=== PATIENT | female | born 1940 | race Caucasian/White ===

== ENCOUNTER 2019-02-19 11:26 | Inpatient (IN) | payer MEDICARE, OTHER ==
[2019-02-19] VITALS (37 sets, daily range): BP systolic 121–155; BP diastolic 51–97
[~2019-02-19] VITALS: Ht 154.9 cm; Wt 54.1 kg
[2019-02-19 11:53] LABS: BASOPHILS % 0.7 % (0.0-2.0); EOSINOPHILS % 1.2 % (0.0-5.0); HEMATOCRIT. 46.1 % (36.0-48.0); HEMOGLOBIN. 15.4 g/dL (12.0-16.0); LYMPHOCYTES % 9.9 % (20.0-50.0); MEAN CORPUSCULAR HEMOGLOBIN 31.8 pg (28.0-32.0); MEAN CORPUSCULAR VOLUME 95.1 fL (81.0-99.0); MEAN PLATELET VOLUME 8.9 fl (7.4-10.4); MONOCYTES % 4.3 % (2.0-8.0); NEUTROPHILS % 83.9 % (40.0-76.0); PLATELET 398 x1000/uL (130-400); RED BLOOD CELL COUNT 4.85 mill/uL (4.2-5.4); RED CELL DISTRIBUTION WIDTH 13.8 % (11.6-14.6)
[2019-02-19 11:55] LABS: CHLORIDE 101 mEq/L (98-107)
[2019-02-19 11:59] LABS: ETHANOL BLOOD < 10 mg/dL
[2019-02-19 12:02] LABS: LDL CHOLESTEROL 109 mg/dL (5-100)
[2019-02-19 12:06] LABS: PROTHROMBIN TIME 9.9 sec (9.6-11.0)
[2019-02-19] MEDS ORDERED: ASPIRIN 325MG EC TABLET PO ONE (12:30)
[2019-02-19] MEDS ORDERED: ALTEPLASE IV STA (13:07)
[2019-02-19] MEDS ORDERED: ALTEPLASE 100MG/VIAL IV STA (13:07)
[2019-02-19] MEDS ORDERED: *NO ASPIRIN X 24 HOURS XX SCH (13:14)
[2019-02-19] MEDS ORDERED: MAGNESIUM/ALUMINUM HYDROXIDE/SIMETHICONE 30ML UDC PO PRN (16:15)
[2019-02-19] MEDS ORDERED: ACETAMINOPHEN 325MG TABLET PO PRN (16:15)
[2019-02-19] MEDS ORDERED: DOCUSATE SODIUM 100MG CAPSULE PO PRN (16:15)
[2019-02-19] MEDS ORDERED: HYDROCODONE/ACETAMINOPHEN 5/325MG TABLET PO PRN (16:15)
[2019-02-19] MEDS ORDERED: DIPHENHYDRAMINE 50MG/ML VIAL IV PRN (16:15)
[2019-02-19] MEDS ORDERED: ONDANSETRON HCL 4MG/2ML INJ IV PRN (16:15)
[2019-02-19] MEDS ORDERED: CYAN100096 PO (16:22)
[2019-02-19] MEDS ORDERED: DENO60DI SQ (16:22)
[2019-02-19] MEDS ORDERED: GABA-531 MT (17:14)
[2019-02-19] MEDS ORDERED: MELO-104 PO (17:14)
[2019-02-19] MEDS ORDERED: BIMA2.5D4 EACHEYE (17:14)
[2019-02-19] MEDS ORDERED: MEMA10TA19 MT (17:14)
[2019-02-19] MEDS ORDERED: METO25TA6 PO (17:14)
[2019-02-19] MEDS ORDERED: LUTE1CAP5 MT (17:14)
[2019-02-19] MEDS ORDERED: CHOL200010 PO (17:14)
[2019-02-19] MEDS ORDERED: OMEP20CA5 PO (17:14)
[2019-02-19] MEDS ORDERED: SACC250C9 PO (17:14)
[2019-02-19] MEDS ORDERED: TRAM50TA3 PO (17:14)
[2019-02-19] MEDS ORDERED: DONE10TA43 MT (17:14)
[2019-02-19] MEDS ORDERED: SIMV40TA5 PO (17:14)
[2019-02-19] MEDS ORDERED: UBID100C12 PO (17:14)
[2019-02-19] MEDS ORDERED: LEVO75TA7 PO (17:14)
[2019-02-19] MEDS ORDERED: MAGN500C4 PO (17:14)
[2019-02-19] MEDS ORDERED: MELA10CA PO (17:14)
[2019-02-19] MEDS ORDERED: CALC-900 PO (17:14)
[2019-02-19] MEDS ORDERED: GLUC-113 MT (17:14)
[2019-02-19] MEDS ORDERED: IOHEXOL-350 100 ML BOTTLE ONE (17:18)
[2019-02-19 17:47] LABS: T4 FREE 1.6 ng/dL (0.76-1.46)
[2019-02-19 18:14] LABS: VITAMIN B12 SERUM > 2000.0 pg/mL (211-911)
[2019-02-19 18:31] LABS: CLARITY URINE CLOUDY (CLEAR); COLOR URINE YELLOW (YELLOW); KETONES URINE NEGATIVE (NEGATIVE); LEUKOCYTE ESTERASE URINE 2+ (NEGATIVE); NITRITE URINE POSITIVE (NEGATIVE); OCCULT BLOOD URINE TRACE (NEGATIVE); PROTEIN URINE 1+ (NEGATIVE); SPECIFIC GRAVITY URINE 1.031 (1.005-1.030); UROBILINOGEN URINE 0.2 E.U./dL (0.2-1.0)
[2019-02-19] MEDS ORDERED: TRAMADOL 50MG TABLET PO PRN (18:45)
[2019-02-19 18:52] LABS: *AMPHETAMINES SCREEN URINE NEGATIVE (NEGATIVE); *BARBITURATES SCREEN URINE NEGATIVE (NEGATIVE); *BENZODIAZEPINES SCREEN URINE NEGATIVE (NEGATIVE)
[2019-02-19 18:53] LABS: *COCAINE SCREEN URINE NEGATIVE (NEGATIVE); CANNABINOID URINE SCREEN PRESUMTIVE POSITIVE (NEGATIVE); METHADONE URINE SCREEN NEGATIVE (NEGATIVE); OPIATES URINE SCREEN NEGATIVE (NEGATIVE); PHENCYCLIDINE URINE SCREEN NEGATIVE (NEGATIVE)
[2019-02-19] MEDS: GABAPENTIN 300MG CAPSULE PO SCH (19:08)
[2019-02-19] MEDS: SODIUM CHLORIDE 0.9% 1,000 ML IV SCH (19:37)
[2019-02-19] MEDS: MEMANTINE HCL 10MG TABLET PO SCH (21:10)
[2019-02-20] VITALS (86 sets, daily range): BP systolic 94–190; BP diastolic 34–132
[2019-02-20] MEDS: CLONIDINE 0.1MG TABLET PO PRN (02:02)
[2019-02-20 05:18] LABS: BASOPHILS % 0.6 % (0.0-2.0); EOSINOPHILS % 3.3 % (0.0-5.0); HEMATOCRIT. 38.6 % (36.0-48.0); HEMOGLOBIN. 12.9 g/dL (12.0-16.0); MEAN CORPUSCULAR HEMOGLOBIN 31.8 pg (28.0-32.0); MEAN CORPUSCULAR VOLUME 95.3 fL (81.0-99.0); MONOCYTES % 8.7 % (2.0-8.0); NEUTROPHILS % 58.4 % (40.0-76.0); PLATELET 306 x1000/uL (130-400); RED BLOOD CELL COUNT 4.05 mill/uL (4.2-5.4); RED CELL DISTRIBUTION WIDTH 13.5 % (11.6-14.6)
[2019-02-20 05:35] LABS: PHOSPHORUS 3.6 mg/dL (2.5-4.9)
[2019-02-20] MEDS: PANTOPRAZOLE SODIUM 40 MG/VIAL IV SCH (08:21)
[2019-02-20] MEDS: OMEPRAZOLE 20MG CAPSULE EXTENDED RELEASE PO SCH (08:22)
[2019-02-20] MEDS: DONEPEZIL HCL 10MG TABLET PO SCH (08:22)
[2019-02-20] MEDS: GABAPENTIN 300MG CAPSULE PO SCH ×3 (08:22→19:04)
[2019-02-20] MEDS: MEMANTINE HCL 10MG TABLET PO SCH ×2 (08:22→19:05)
[2019-02-20] MEDS: LEVOTHYROXINE SODIUM 75MCG TABLET PO SCH (08:23)
[2019-02-20] MEDS ORDERED: POTASSIUM CHLORIDE 20MEQ TABLET SR PO NR (08:30)
[2019-02-20 09:30] LABS: CREATINE KINASE 72 IU/L (26-192)
[2019-02-20] MEDS: CYANOCOBALAMIN 1000MCG TABLET PO SCH (12:18)
[2019-02-20] MEDS ORDERED: METOPROLOL TARTRATE 25MG TABLET PO SCH (17:00)
[2019-02-20] MEDS: MELOXICAM 7.5MG TABLET PO SCH (19:04)
[2019-02-20] MEDS: SODIUM CHLORIDE 0.9% 1,000 ML IV SCH (20:16)
[2019-02-20] MEDS ORDERED: ATORVASTATIN CALCIUM 10MG TABLET PO SCH (21:00)
[2019-02-21] VITALS (17 sets, daily range): BP systolic 88–175; BP diastolic 57–114
[2019-02-21] MEDS: CLONIDINE 0.1MG TABLET PO PRN (00:08)
[2019-02-21 05:26] LABS: BASOPHILS % 0.7 % (0.0-2.0); EOSINOPHILS % 4.2 % (0.0-5.0); HEMOGLOBIN. 12.9 g/dL (12.0-16.0); LYMPHOCYTES % 22.4 % (20.0-50.0); MEAN CORPUSCULAR HEMOGLOBIN 31.8 pg (28.0-32.0); MEAN CORPUSCULAR VOLUME 95.8 fL (81.0-99.0); MEAN PLATELET VOLUME 9.5 fl (7.4-10.4); NEUTROPHILS % 64.7 % (40.0-76.0); PLATELET 330 x1000/uL (130-400); RED BLOOD CELL COUNT 4.07 mill/uL (4.2-5.4); RED CELL DISTRIBUTION WIDTH 13.9 % (11.6-14.6)
[2019-02-21] MEDS: MEMANTINE HCL 10MG TABLET PO SCH (08:43)
[2019-02-21] MEDS: GABAPENTIN 300MG CAPSULE PO SCH ×2 (08:43→12:53)
[2019-02-21] MEDS: OMEPRAZOLE 20MG CAPSULE EXTENDED RELEASE PO SCH (08:43)
[2019-02-21] MEDS: CYANOCOBALAMIN 1000MCG TABLET PO SCH (08:43)
[2019-02-21] MEDS: LEVOTHYROXINE SODIUM 75MCG TABLET PO SCH (08:43)
[2019-02-21] MEDS: MELOXICAM 7.5MG TABLET PO SCH (08:44)
[2019-02-21] MEDS: PANTOPRAZOLE SODIUM 40 MG/VIAL IV SCH (08:44)
[2019-02-21] MEDS: DONEPEZIL HCL 10MG TABLET PO SCH (08:44)
[2019-02-21] MEDS ORDERED: METOPROLOL TARTRATE 50MG TABLET PO SCH (12:00)
[2019-02-21] MEDS ORDERED: CEPHALEXIN 250MG CAPSULE PO SCH (14:30)
[2019-02-21] MEDS ORDERED: CLOPIDOGREL 75MG TABLET PO SCH (15:45)
[2019-02-22] MEDS ORDERED: LEVOTHYROXINE SODIUM 75MCG TABLET PO SCH (06:30)
[2019-02-22] MEDS ORDERED: METOPROLOL TARTRATE 25MG TABLET PO SCH (09:00)
== END 2019-02-21 16:20 | DRG 61 ==
LOC: ER 11:26 → MICUNO 13:26 → EDBEDREQ 13:33 → EDBEDREQSVC 13:33 → ENRESERV 13:53
PROVIDERS: ADMIT Family Medicine Adult Medicine; ATTEND Family Medicine Adult Medicine
DX: I63.9 Cerebral infarction, unspecified (principal); N17.0 Acute kidney failure with tubular necrosis; N39.0 Urinary tract infection, site not specified; G81.94 Hemiplegia, unspecified affecting left nondominant side; R47.01 Aphasia; D64.9 Anemia, unspecified; E87.6 Hypokalemia; E78.5 Hyperlipidemia, unspecified; R13.10 Dysphagia, unspecified; M48.061 Spinal stenosis, lumbar region without neurogenic claudication; B96.20 Unspecified Escherichia coli [E. coli] as the cause of diseases classified elsewhere; E03.9 Hypothyroidism, unspecified; E78.00 Pure hypercholesterolemia, unspecified; F02.80 Dementia in other diseases classified elsewhere, unspecified severity, without behavioral disturbance, psychotic disturbance, mood disturbance, and anxiety; G30.9 Alzheimer's disease, unspecified; G89.4 Chronic pain syndrome; Z66 Do not resuscitate; M19.90 Unspecified osteoarthritis, unspecified site; R47.1 Dysarthria and anarthria; I12.9 Hypertensive chronic kidney disease with stage 1 through stage 4 chronic kidney disease, or unspecified chronic kidney disease; N18.9 Chronic kidney disease, unspecified; Z82.49 Family history of ischemic heart disease and other diseases of the circulatory system; Z88.2 Allergy status to sulfonamides; Z90.710 Acquired absence of both cervix and uterus; Z79.899 Other long term (current) drug therapy
CPT/HCPCS: 36415; 70496; 70498; 70551; 71045; 76770; 80048; 80061; 80305; 80320; 81003; 82550; 82607; 82746; 82962; 83036; 83721; 83735; 84100; 84439; 84443; 84481; 84484; 87077; 87186; 93005; 93306; 93970; 97110; 97116; 97162; 97166; 99291; C9113; J2997; J7030; Q9967; G0480

== ENCOUNTER 2019-02-21 16:35 | Inpatient (IN) | payer MEDICARE, OTHER ==
[~2019-02-21] VITALS: Ht 154.9 cm; Wt 52.6 kg
[2019-02-21 16:35] VITALS: BP 158/82
[~2019-02-21 16:35] MED LIST: BIMA2.5D4 EACHEYE; CALC-900 PO; CHOL200010 PO; CYAN100096 PO; DENO60DI SQ; DONE10TA43 MT; GABA-531 MT; GLUC-113 MT; LEVO75TA7 PO; LUTE1CAP5 MT; MAGN500C4 PO; MELA10CA PO; MELO-104 PO; MEMA10TA19 MT; METO25TA6 PO; OMEP20CA5 PO; SACC250C9 PO; SIMV40TA5 PO; TRAM50TA3 PO; UBID100C12 PO
[2019-02-21] MEDS ORDERED: HYDROCODONE/ACETAMINOPHEN 5/325MG TABLET PO PRN (17:45)
[2019-02-21] MEDS ORDERED: TRAMADOL 50MG TABLET PO PRN (17:45)
[2019-02-21] MEDS ORDERED: CEPHALEXIN 250MG CAPSULE PO ONE (17:45)
[2019-02-21] MEDS ORDERED: ACETAMINOPHEN 325MG TABLET PO PRN (17:45)
[2019-02-21] MEDS ORDERED: ONDANSETRON 4MG ODT PO PRN (17:45)
[2019-02-21] MEDS ORDERED: DIPHENHYDRAMINE 25MG CAPSULE PO PRN (17:45)
[2019-02-21] MEDS: CLONIDINE 0.1MG TABLET PO PRN (19:56)
[2019-02-21 20:00] VITALS: BP 163/81
[2019-02-21 21:00] VITALS: BP 154/91
[2019-02-21] MEDS: GABAPENTIN 300MG CAPSULE PO SCH (21:00)
[2019-02-21] MEDS: ATORVASTATIN CALCIUM 10MG TABLET PO SCH (21:02)
[2019-02-21] MEDS: MEMANTINE HCL 10MG TABLET PO SCH (21:02)
[2019-02-22] MEDS: GABAPENTIN 300MG CAPSULE PO SCH ×3 (06:12→21:30)
[2019-02-22] MEDS: LEVOTHYROXINE SODIUM 75MCG TABLET PO SCH (06:13)
[2019-02-22 07:11] LABS: BASOPHILS % 0.9 % (0.0-2.0); EOSINOPHILS % 3.6 % (0.0-5.0); HEMATOCRIT. 42.6 % (36.0-48.0); HEMOGLOBIN. 14.2 g/dL (12.0-16.0); MEAN CORPUSCULAR HEMOGLOBIN 31.8 pg (28.0-32.0); MEAN CORPUSCULAR VOLUME 95.9 fL (81.0-99.0); MEAN PLATELET VOLUME 9.1 fl (7.4-10.4); MONOCYTES % 7.5 % (2.0-8.0); PLATELET 366 x1000/uL (130-400); RED BLOOD CELL COUNT 4.45 mill/uL (4.2-5.4); RED CELL DISTRIBUTION WIDTH 13.6 % (11.6-14.6)
[2019-02-22 07:19] LABS: CHLORIDE 111 mEq/L (98-107)
[2019-02-22 08:00] VITALS: BP 107/55
[2019-02-22] MEDS: METOPROLOL TARTRATE 50MG TABLET PO SCH (09:00)
[2019-02-22] MEDS ORDERED: MAGNESIUM/ALUMINUM HYDROXIDE/SIMETHICONE 30ML UDC PO SCH (09:00)
[2019-02-22] MEDS: MEMANTINE HCL 10MG TABLET PO SCH ×2 (09:50→21:30)
[2019-02-22] MEDS: OMEPRAZOLE 20MG CAPSULE EXTENDED RELEASE PO SCH (09:50)
[2019-02-22] MEDS: DONEPEZIL HCL 10MG TABLET PO SCH (09:51)
[2019-02-22] MEDS: MELOXICAM 7.5MG TABLET PO SCH (09:51)
[2019-02-22] MEDS: DOCUSATE SODIUM 100MG CAPSULE PO SCH ×2 (09:51→17:09)
[2019-02-22] MEDS: CYANOCOBALAMIN 1000MCG TABLET PO SCH (10:56)
[2019-02-22] MEDS: CEPHALEXIN 250MG CAPSULE PO SCH (17:10)
[2019-02-22 20:00] VITALS: BP 148/86
[2019-02-22] MEDS: ATORVASTATIN CALCIUM 10MG TABLET PO SCH (21:30)
[2019-02-23 05:39] LABS: BASOPHILS % 0.6 % (0.0-2.0); CHLORIDE 107 mEq/L (98-107); HEMATOCRIT. 40.7 % (36.0-48.0); HEMOGLOBIN. 13.6 g/dL (12.0-16.0); LYMPHOCYTES % 23.3 % (20.0-50.0); MEAN CORPUSCULAR HEMOGLOBIN 31.8 pg (28.0-32.0); MONOCYTES % 8.8 % (2.0-8.0); NEUTROPHILS % 63.3 % (40.0-76.0); PLATELET 340 x1000/uL (130-400); RED BLOOD CELL COUNT 4.28 mill/uL (4.2-5.4); RED CELL DISTRIBUTION WIDTH 13.6 % (11.6-14.6)
[2019-02-23 05:46] LABS: PHOSPHORUS 2.7 mg/dL (2.5-4.9)
[2019-02-23] MEDS: GABAPENTIN 300MG CAPSULE PO SCH ×3 (06:22→21:19)
[2019-02-23] MEDS: LEVOTHYROXINE SODIUM 75MCG TABLET PO SCH (06:22)
[2019-02-23 08:21] VITALS: BP 134/87
[2019-02-23] MEDS: DOCUSATE SODIUM 100MG CAPSULE PO SCH ×2 (10:07→17:03)
[2019-02-23] MEDS: MEMANTINE HCL 10MG TABLET PO SCH ×2 (10:08→20:09)
[2019-02-23] MEDS: CEPHALEXIN 250MG CAPSULE PO SCH ×2 (10:08→17:03)
[2019-02-23] MEDS: METOPROLOL TARTRATE 50MG TABLET PO SCH (10:08)
[2019-02-23] MEDS: DONEPEZIL HCL 10MG TABLET PO SCH (10:08)
[2019-02-23] MEDS: MELOXICAM 7.5MG TABLET PO SCH (10:09)
[2019-02-23] MEDS: CLOPIDOGREL 75MG TABLET PO SCH (10:09)
[2019-02-23] MEDS: CYANOCOBALAMIN 1000MCG TABLET PO SCH (10:09)
[2019-02-23] MEDS: OMEPRAZOLE 20MG CAPSULE EXTENDED RELEASE PO SCH (10:09)
[2019-02-23 20:00] VITALS: BP 114/69
[2019-02-23] MEDS: ATORVASTATIN CALCIUM 10MG TABLET PO SCH (20:09)
[2019-02-23] MEDS: LATANOPROST 0.005% OPHTH DROPS 2.5ML BOTHEYE SCH (20:09)
[2019-02-23] MEDS ORDERED: NON FORMULARY PATIENT HOME MED OP SCH (21:00)
[2019-02-24] MEDS: GABAPENTIN 300MG CAPSULE PO SCH ×3 (06:08→21:33)
[2019-02-24] MEDS: LEVOTHYROXINE SODIUM 75MCG TABLET PO SCH (06:08)
[2019-02-24 08:11] VITALS: BP 113/75
[2019-02-24] MEDS: OMEPRAZOLE 20MG CAPSULE EXTENDED RELEASE PO SCH (08:54)
[2019-02-24] MEDS: CEPHALEXIN 250MG CAPSULE PO SCH ×2 (08:55→16:11)
[2019-02-24] MEDS: MEMANTINE HCL 10MG TABLET PO SCH ×2 (08:56→21:33)
[2019-02-24] MEDS: CLOPIDOGREL 75MG TABLET PO SCH (08:56)
[2019-02-24] MEDS: CYANOCOBALAMIN 1000MCG TABLET PO SCH (08:56)
[2019-02-24] MEDS: DOCUSATE SODIUM 100MG CAPSULE PO SCH ×2 (08:57→16:11)
[2019-02-24] MEDS: DONEPEZIL HCL 10MG TABLET PO SCH (08:57)
[2019-02-24] MEDS: MELOXICAM 7.5MG TABLET PO SCH (08:57)
[2019-02-24] MEDS: METOPROLOL TARTRATE 50MG TABLET PO SCH (08:58)
[2019-02-24] MEDS ORDERED: BISACODYL 5MG TABLET PO PRN (10:00)
[2019-02-24] MEDS: LACTULOSE 20G/30ML UDC PO PRN ×2 (10:33→12:59)
[2019-02-24] MEDS: ENOXAPARIN 30MG/0.3ML SYR SUBCUT SCH (12:59)
[2019-02-24] MEDS: LIDOCAINE 5% PATCH TOP SCH (13:00)
[2019-02-24 20:00] VITALS: BP 169/86
[2019-02-24] MEDS: ATORVASTATIN CALCIUM 10MG TABLET PO SCH (21:33)
[2019-02-24] MEDS: LATANOPROST 0.005% OPHTH DROPS 2.5ML BOTHEYE SCH (21:34)
[2019-02-25] MEDS: GABAPENTIN 300MG CAPSULE PO SCH ×3 (06:20→21:09)
[2019-02-25] MEDS: LEVOTHYROXINE SODIUM 75MCG TABLET PO SCH (06:20)
[2019-02-25 07:13] LABS: BASOPHILS % 0.7 % (0.0-2.0); EOSINOPHILS % 4.2 % (0.0-5.0); HEMATOCRIT. 40.4 % (36.0-48.0); HEMOGLOBIN. 13.4 g/dL (12.0-16.0); LYMPHOCYTES % 24.1 % (20.0-50.0); MEAN CORPUSCULAR HEMOGLOBIN 31.6 pg (28.0-32.0); MEAN CORPUSCULAR VOLUME 95.5 fL (81.0-99.0); MEAN PLATELET VOLUME 9.1 fl (7.4-10.4); MONOCYTES % 9.7 % (2.0-8.0); NEUTROPHILS % 61.3 % (40.0-76.0); PLATELET 345 x1000/uL (130-400); RED BLOOD CELL COUNT 4.23 mill/uL (4.2-5.4); RED CELL DISTRIBUTION WIDTH 13.6 % (11.6-14.6)
[2019-02-25 07:29] LABS: CHLORIDE 108 mEq/L (98-107)
[2019-02-25 07:48] LABS: PHOSPHORUS 3.7 mg/dL (2.5-4.9)
[2019-02-25 08:00] VITALS: BP 135/90
[2019-02-25] MEDS ORDERED: SODIUM CHLORIDE 0.45% 1,000 ML IV SCH (08:45)
[2019-02-25] MEDS: OMEPRAZOLE 20MG CAPSULE EXTENDED RELEASE PO SCH (09:44)
[2019-02-25] MEDS: MEMANTINE HCL 10MG TABLET PO SCH ×2 (09:45→21:09)
[2019-02-25] MEDS: LIDOCAINE 5% PATCH TOP SCH (09:45)
[2019-02-25] MEDS: CYANOCOBALAMIN 1000MCG TABLET PO SCH (09:45)
[2019-02-25] MEDS: METOPROLOL TARTRATE 50MG TABLET PO SCH (09:45)
[2019-02-25] MEDS: DONEPEZIL HCL 10MG TABLET PO SCH (09:45)
[2019-02-25] MEDS: DOCUSATE SODIUM 100MG CAPSULE PO SCH ×2 (09:45→16:48)
[2019-02-25] MEDS: MELOXICAM 7.5MG TABLET PO SCH (09:45)
[2019-02-25] MEDS: CEPHALEXIN 250MG CAPSULE PO SCH ×2 (09:45→16:48)
[2019-02-25] MEDS: CLOPIDOGREL 75MG TABLET PO SCH (09:45)
[2019-02-25 10:25] LABS: CREATINE KINASE 80 IU/L (26-192)
[2019-02-25] MEDS: ENOXAPARIN 30MG/0.3ML SYR SUBCUT SCH (14:06)
[2019-02-25 20:00] VITALS: BP 128/101
[2019-02-25 20:30] VITALS: BP 163/93
[2019-02-25] MEDS: ATORVASTATIN CALCIUM 10MG TABLET PO SCH (21:09)
[2019-02-25] MEDS: CLONIDINE 0.1MG TABLET PO PRN (21:09)
[2019-02-25] MEDS: LATANOPROST 0.005% OPHTH DROPS 2.5ML BOTHEYE SCH (21:10)
[2019-02-26] MEDS: GABAPENTIN 300MG CAPSULE PO SCH ×3 (06:18→21:28)
[2019-02-26] MEDS: LEVOTHYROXINE SODIUM 75MCG TABLET PO SCH (06:18)
[2019-02-26 06:53] LABS: BASOPHILS % 0.9 % (0.0-2.0); EOSINOPHILS % 4.8 % (0.0-5.0); HEMATOCRIT. 38.9 % (36.0-48.0); HEMOGLOBIN. 13.3 g/dL (12.0-16.0); MEAN CORPUSCULAR HEMOGLOBIN 32.3 pg (28.0-32.0); MEAN CORPUSCULAR VOLUME 94.8 fL (81.0-99.0); MEAN PLATELET VOLUME 9.2 fl (7.4-10.4); MONOCYTES % 9.6 % (2.0-8.0); NEUTROPHILS % 58.7 % (40.0-76.0); PLATELET 322 x1000/uL (130-400); RED CELL DISTRIBUTION WIDTH 13.5 % (11.6-14.6)
[2019-02-26 08:00] VITALS: BP 147/97
[2019-02-26] MEDS: CLOPIDOGREL 75MG TABLET PO SCH (09:00)
[2019-02-26] MEDS: DOCUSATE SODIUM 100MG CAPSULE PO SCH ×2 (09:00→17:00)
[2019-02-26] MEDS: MEMANTINE HCL 10MG TABLET PO SCH ×2 (09:00→21:28)
[2019-02-26] MEDS: DONEPEZIL HCL 10MG TABLET PO SCH (09:00)
[2019-02-26] MEDS: METOPROLOL TARTRATE 50MG TABLET PO SCH (09:01)
[2019-02-26] MEDS: CYANOCOBALAMIN 1000MCG TABLET PO SCH (09:01)
[2019-02-26] MEDS: LIDOCAINE 5% PATCH TOP SCH (09:02)
[2019-02-26] MEDS: OMEPRAZOLE 20MG CAPSULE EXTENDED RELEASE PO SCH (11:48)
[2019-02-26] MEDS: MELOXICAM 7.5MG TABLET PO SCH (11:48)
[2019-02-26] MEDS: ENOXAPARIN 30MG/0.3ML SYR SUBCUT SCH (13:41)
[2019-02-26 20:00] VITALS: BP 165/85
[2019-02-26] MEDS: LATANOPROST 0.005% OPHTH DROPS 2.5ML BOTHEYE SCH (21:27)
[2019-02-26] MEDS: ATORVASTATIN CALCIUM 10MG TABLET PO SCH (21:28)
[2019-02-27 04:57] LABS: BASOPHILS % 0.8 % (0.0-2.0); EOSINOPHILS % 4.6 % (0.0-5.0); HEMATOCRIT. 39.8 % (36.0-48.0); HEMOGLOBIN. 13.5 g/dL (12.0-16.0); LYMPHOCYTES % 28.4 % (20.0-50.0); MEAN CORPUSCULAR HEMOGLOBIN 32.4 pg (28.0-32.0); MEAN CORPUSCULAR VOLUME 95.5 fL (81.0-99.0); MEAN PLATELET VOLUME 8.6 fl (7.4-10.4); MONOCYTES % 8.3 % (2.0-8.0); NEUTROPHILS % 57.9 % (40.0-76.0); PLATELET 327 x1000/uL (130-400); RED BLOOD CELL COUNT 4.17 mill/uL (4.2-5.4); RED CELL DISTRIBUTION WIDTH 13.6 % (11.6-14.6)
[2019-02-27] MEDS: GABAPENTIN 300MG CAPSULE PO SCH ×3 (06:19→21:09)
[2019-02-27] MEDS: LEVOTHYROXINE SODIUM 75MCG TABLET PO SCH (06:19)
[2019-02-27 08:00] VITALS: BP 128/75
[2019-02-27] MEDS: DONEPEZIL HCL 10MG TABLET PO SCH (10:37)
[2019-02-27] MEDS: MELOXICAM 7.5MG TABLET PO SCH (10:37)
[2019-02-27] MEDS: CYANOCOBALAMIN 1000MCG TABLET PO SCH (10:38)
[2019-02-27] MEDS: OMEPRAZOLE 20MG CAPSULE EXTENDED RELEASE PO SCH (10:38)
[2019-02-27] MEDS: METOPROLOL TARTRATE 50MG TABLET PO SCH (10:38)
[2019-02-27] MEDS: DOCUSATE SODIUM 100MG CAPSULE PO SCH ×2 (10:39→17:11)
[2019-02-27] MEDS: CLOPIDOGREL 75MG TABLET PO SCH (10:39)
[2019-02-27] MEDS: MEMANTINE HCL 10MG TABLET PO SCH ×2 (10:39→21:09)
[2019-02-27] MEDS: AMLODIPINE 2.5MG TABLET PO SCH (12:01)
[2019-02-27] MEDS: LIDOCAINE 5% PATCH TOP SCH (12:01)
[2019-02-27] MEDS: ENOXAPARIN 30MG/0.3ML SYR SUBCUT SCH (13:04)
[2019-02-27 20:00] VITALS: BP 138/80
[2019-02-27] MEDS: ATORVASTATIN CALCIUM 10MG TABLET PO SCH (21:09)
[2019-02-27] MEDS: LATANOPROST 0.005% OPHTH DROPS 2.5ML BOTHEYE SCH (21:09)
[2019-02-28] MEDS: LEVOTHYROXINE SODIUM 75MCG TABLET PO SCH (06:07)
[2019-02-28] MEDS: GABAPENTIN 300MG CAPSULE PO SCH (06:07)
[2019-02-28 07:00] VITALS: BP 139/85
[2019-02-28] MEDS: DOCUSATE SODIUM 100MG CAPSULE PO SCH (08:34)
[2019-02-28] MEDS: CLOPIDOGREL 75MG TABLET PO SCH (08:34)
[2019-02-28] MEDS: DONEPEZIL HCL 10MG TABLET PO SCH (08:35)
[2019-02-28] MEDS: MEMANTINE HCL 10MG TABLET PO SCH (08:35)
[2019-02-28] MEDS: METOPROLOL TARTRATE 50MG TABLET PO SCH (08:35)
[2019-02-28] MEDS: AMLODIPINE 2.5MG TABLET PO SCH (08:35)
[2019-02-28] MEDS: MELOXICAM 7.5MG TABLET PO SCH (08:35)
[2019-02-28] MEDS: LIDOCAINE 5% PATCH TOP SCH (08:36)
[2019-02-28] MEDS ORDERED: FAMOTIDINE 20MG TABLET PO SCH (09:00)
[2019-02-28 11:10] VITALS: BP 133/90
[2019-02-28 11:15] VITALS: BP 133/90
[2019-03-01 04:10] LABS: 25-HYDROXY VITAMIN D3 52 ng/mL (.)
== END 2019-02-28 11:50 | disposition home or self-care (01) | DRG 56 ==
PROVIDERS: ADMIT Physical Medicine & Rehabilitation Spinal Cord Injury Medicine; ATTEND Family Medicine Adult Medicine
DX: I69.354 Hemiplegia and hemiparesis following cerebral infarction affecting left non-dominant side (principal); I63.9 Cerebral infarction, unspecified; N39.0 Urinary tract infection, site not specified; N17.9 Acute kidney failure, unspecified; D62 Acute posthemorrhagic anemia; R47.01 Aphasia; N18.9 Chronic kidney disease, unspecified; I12.9 Hypertensive chronic kidney disease with stage 1 through stage 4 chronic kidney disease, or unspecified chronic kidney disease; R13.10 Dysphagia, unspecified; B96.20 Unspecified Escherichia coli [E. coli] as the cause of diseases classified elsewhere; E78.00 Pure hypercholesterolemia, unspecified; R47.1 Dysarthria and anarthria; R79.89 Other specified abnormal findings of blood chemistry; E87.6 Hypokalemia; R29.810 Facial weakness; M48.061 Spinal stenosis, lumbar region without neurogenic claudication; R53.81 Other malaise; E78.5 Hyperlipidemia, unspecified; G89.4 Chronic pain syndrome; F02.80 Dementia in other diseases classified elsewhere, unspecified severity, without behavioral disturbance, psychotic disturbance, mood disturbance, and anxiety; G30.9 Alzheimer's disease, unspecified; E03.9 Hypothyroidism, unspecified; Z90.710 Acquired absence of both cervix and uterus; Z88.2 Allergy status to sulfonamides; Z88.0 Allergy status to penicillin; Z79.899 Other long term (current) drug therapy
CPT/HCPCS: 36415; 80048; 82140; 82306; 82550; 83735; 84100; 84134; 92508; 92523; 92610; 93970; 97110; 97112; 97116; 97150; 97162; 97166; 97530; 97535; C1893; J1650